=== PATIENT | female | born 1965 | race Caucasian/White ===

== ENCOUNTER 2020-02-19 14:47 | Emergency (ER) | payer BC, OTHER ==
[2020-02-19] MEDS ORDERED: TETANUS/DIPHTHERIA/PERTUSSIS 0.5 ML SYRINGE IM ONE (16:21)
--- NOTE | 2020-02-19 16:24 | ED Physician Documentation ---
History of Present Illness - Stated complaint Stated Complaint: FINGER LAC - Chief complaint Chief Complaint: Laceration - History obtained from History obtained from: Patient - Additonal information Additional information: 54-year-old woman, not up-to-date on tetanus presents with left index finger laceration while chopping vegetables. Today. She denies any other injuries. Does not think that there are any foreign bodies. Review of Systems Skin: reports: Laceration (s) PD PAST MEDICAL HISTORY - Allergies Allergies/Adverse Reactions: Allergies Allergy/AdvReac Type Severity Reaction Status Date / Time azithromycin [From Zithromax] Allergy Hives Verified 02/19/20 15:12 - Social History Does the pt smoke?: No Smoking Status: Never smoker PD ED PE NORMAL - Vitals Vital signs reviewed: Yes - General General: Alert and oriented X 3 - Derm Derm: Other (3.5 cm laceration to Volar aspect of distal left 2nd finger Extending into the subcutaneous fat but without any tendon involvement. Does not go to the bone.) Results - Vitals Vitals: Vital Signs - 24 hr 02/19/20 02/19/20 15:08 16:35 Temperature 36.7 C 36.7 C Heart Rate 77 62 Respiratory 15 18 Rate Blood Pressure 146/72 H 117/71 O2 Saturation 100 100 Oxygen O2 Source Room air Procedures - Laceration (location) Finger left Length in cm: 3.5 Wound type: Flap Neurovascular status: Sensory intact, Motor intact, Vascular intact Tendon involvement: Tendon intact Anesthesia: Lidocaine 1%, With bicarb Wound Preparation: Irrigated copiously NS, Wound explored, To the base, Wound edges modified (Some devitalized tissue was cut away). No: FB identified Skin layer closure: Nylon, Size #-0 - enter number (4), Sutures - enter # (6) Other: Patient tolerated well, No complications, Neurovascular intact, Dressing applied, Tetanus booster given Complexity: Intermediate PD MEDICAL DECISION MAKING - ED course ED course: 54-year-old woman presents with large laceration to index finger while chopping vegetables, I repaired it without complication. Strict return precautions given. She will follow-up in 14 days. Departure - Departure Disposition: 01 Home, Self Care Clinical Impression: Laceration of finger Instructions: ED Laceration All Comments: You have been seen in the emergency department for a finger laceration. 6 stitches were placed. Please follow-up in 14 days for suture removal either here or urgent care or at your primary doctor's office. Call your primary ahead of time if you are going to go there to make sure they have the equipment necessary. Return to the ED for any new or worsening symptoms or signs of infection as we discussed. Discharge Date/Time: 02/19/20 16:44
[2020-02-19 16:36] VITALS: BP 117/71
== END 2020-02-19 16:44 | disposition home or self-care (01) ==
LOC: ED 14:47
DX: S61.211A Laceration without foreign body of left index finger without damage to nail, initial encounter (principal); W26.0XXA Contact with knife, initial encounter; Y93.G1 Activity, food preparation and clean up; Z23 Encounter for immunization
CPT/HCPCS: 12002; 12042; 90471; 99282; 99283

== ENCOUNTER 2020-10-05 12:30 | Outpatient (CLI) | payer BC | END 2020-10-05 23:59 | disposition home or self-care (01) | LOC: LAB.N 12:30 | PROVIDERS: ATTEND Nurse Practitioner | DX: U07.1 COVID-19 (principal) ==

== ENCOUNTER 2020-10-05 13:22 | Outpatient (CLI) | payer BC ==
--- NOTE | 2020-10-05 14:53 | XRAY Report ---
PROCEDURE: Chest 2 View X-Ray INDICATIONS: VIRAL SYNDROME TECHNIQUE: 2 view(s) of the chest. COMPARISON: None. FINDINGS: Surgical changes and devices: None. Lungs and pleura: No pleural effusions or pneumothorax. Lungs demonstrate mild infrahilar strandy o pacities. No consolidative changes. Mediastinum: Mediastinal contours are normal. Heart size is normal. Bones and chest wall: No suspicious bony abnormalities. Soft tissues appear unremarkable. IMPRESSION: Mild interstitial stranding suggesting viral pneumonitis. No consolidations or effusions . Reviewed by: Latrice Mcbride MD on 10/05/2020 2:52 PM PDT Approved by: Latrice Mcbride MD on 10/05/2020 2:52 PM PDT Station ID: [id number]
== END 2020-10-05 23:59 | disposition home or self-care (01) ==
LOC: DI.N 13:22
PROVIDERS: ATTEND Nurse Practitioner
DX: B34.9 Viral infection, unspecified (principal)